=== PATIENT | female | born 1935 | race Hispanic/Latino ===

== ENCOUNTER 2017-08-09 11:50 | Emergency (ER) | payer MEDICARE, OTHER ==
[~2017-08-09] VITALS: Ht 152.4 cm; Wt 37.2 kg
[~2017-08-09 11:50] MED LIST: FENOFIBRATE200 MG PO; FERROUS FUMARA324 MG PO; FISH OIL OMEGA1 EACH PO; GLUCOSAMINE CH1 EAC2 PO; METOCLOPRAMIDE10 MG PO; OS-CAL 500+D T1 EACH PO; PANTOPRAZOLE SO20 MG PO; PROTONIX40 MG/ML; SULFAMETHOXAZO1 EAC1 PO
--- OUTSIDE RECORDS SUMMARY | 2017-08-09 11:51 | XMS REPORT | Clinical Summary ---
Author Author [facility] Organization [facility] Address Unknown Phone Unavailable Care Team Providers Care Director Print Name Role Phone Tashi Stovall MD PCP Allergies No Known Allergies Current Medications Prescription Sig. Disp. Refills Start End Date Status Date mirtazapine (REMERON) 30 Take 30 mg by mouth Active MG tablet nightly. pantoprazole (PROTONIX) Take 40 mg by mouth Active 40 MG EC tablet daily. ferrous sulfate 325 (65 Take 325 mg by mouth Active FE) MG tablet daily. Take 3 tablets once a day ondansetron (ZOFRAN) 8 MG Take 8 mg by mouth 3 Active tablet (three) times a day. FOLIC Take by mouth. Active ACID/MULTIVIT-MIN/LUTEIN (CENTRUM SILVER ORAL) calcium carbonate-vitamin Take 1 tablet by mouth 2 Active D3 (OS-BHARAT 500 + D3) 500 (two) times a day with mg-200 unit per tablet meals. clarithromycin (BIAXIN) Take 2 tablets (1,000 mg 24 tablet 5 06/23/19 12/21/19 500 MG tablet total) by mouth 3 (three) 17 17 times a week for 180 days. riFAMpin (RIFADIN) 300 MG Take 2 capsules (600 mg 24 capsule 5 12/21/19 capsule total) by mouth 3 (three) 17 17 times a week for 180 days. ethambutol (MYAMBUTOL) Take 2 tablets (800 mg 24 tablet 5 06/23/19 12/21/19 400 MG tablet total) by mouth 3 (three) 17 17 times a week for 180 days. 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 Social History Tobacco Use Types Packs/Day Years Used Date Never Smoker Alcohol Use Drinks/Week oz/Week Comments No Sex Assigned at Date Recorded Not on file Last Filed Vital Signs Not on file Plan of Treatment Health Maintenance Due Date Last Done Comments ZOSTER VACCINE 1995 PNEUMOCOCCAL 12/30/2000 POLYSACCHARIDE VACCINE AGE 65 AND OVER PNEUMOCOCCAL-13 12/30/2000 INFLUENZA VACCINE 12/05/2017 Results Not on fileafter 08/08/2016 Insurance Payer Benefit Subscriber ID Type Phone Address Plan / Group MEDICARE MEDICARE xxxxxxxxxx Medicare [place], [place] PART A AND B Work: [address] [place], [place] Home: [phone]
--- OUTSIDE RECORDS SUMMARY | 2017-08-09 11:51 | XMS REPORT | Clinical Summary ---
Author Author [facility] Address Unknown Phone Unavailable Care Team Providers Care Commodity Lead Name Role Phone PCP Unavailable Allergies No Known Allergies Current Medications Prescription Sig. Disp. Refills Start End Date Status Date pantoprazole (PROTONIX) Take 40 mg by mouth Active 40 MG tablet daily. fenofibrate Take 160 mg by mouth Active (TRIGLIDE,LOFIBRA) 160 MG daily. tablet fLUoxetine (PROZAC) 10 MG Take 10 mg by mouth Active capsule daily. valsartan (DIOVAN) 160 MG Take 160 mg by mouth Active tablet daily. brimonidine (ALPHAGAN) Place 1 drop into both Active 0.15 % ophthalmic eyes 2 (two) times daily. solutionIndications: Ocular Hypertension travoprost (TRAVATAN Z) Place 1 drop into both Active 0.004 % Drop ophthalmic eyes nightly. dropsIndications: Ocular Hypertension dorzolamide-timolol Place 1 drop into both Active (COSOPT) 22.3-6.8 mg/mL eyes 2 (two) times daily. 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 Constipation 04/07/2016 Weight loss 04/07/2016 Hyponatremia 04/05/2016 Encounters Date Type Specialty Care Team Description 07/06/2017 [facility] Radiology Yoav Shaffer MD Abnormal CT scan, chest Encounter 07/05/2017 Outside Orders Central Scheduling Yoav Shaffer MD Abnormal CT scan, chest (Primary Dx) 12/07/2016 [facility] Radiology Yoav Shaffer MD Cough Encounter 12/04/2016 Outside Orders Central Scheduling Yoav Shaffer MD Cough (Primary Dx) after 08/08/2016 Social History Tobacco Use Types Packs/Day Years Used Date Never Smoker Alcohol Use Drinks/Week oz/Week Comments No Sex Assigned at Date Recorded Not on file Last Filed Vital Signs Not on file Plan of Treatment Not on file Results * CT Chest without IV Contrast (07/06/2017 11:51 AM) Only the most recent of 2 results within the time period is included. Specimen Performing Laboratory FriendCode Narrative FINAL REPORT HISTORY: R93.8 COMPARISON : 12/07/2016 Technique : Multiple axial images of the chest were performed from the lung apices to the lung bases without the administration of IV contrast. Images were presented in both the lung and soft tissue windows. This exam was performed according to our departmental dose optimization program which includes automated exposure control, adjustment of the mA and/or kV according to patient size and/or use of iterative reconstructive technique. Comment: The thyroid gland is within normal limits. There is no hilar, mediastinal or axillary lymphadenopathy. There is atherosclerotic vascular disease. There is coronary atherosclerosis. There may be stones in the partially visualized gallbladder. The visualized portions of the liver, spleen, adrenal glands, pancreas are within normal limits. There are areas of cortical atrophy/scarring of the left kidney. Multilevel degenerative disc changes of the thoracic spine are seen. No pneumothorax or pleural effusion is seen. There are some opacities identified in the lungs bilaterally. The opacities in the right upper lobe have diminished while the opacities in the left upper lobe have increased with some reticular nodular components. There are also numerous reticular nodular densities with areas of bronchiectasis seen most significantly in the right middle lobe as well as in the lingula as well as in the bilateral lower lobes which are not appreciably changed. Given the nodular components of the airspace disease, continued close CT follow-up is advised. Impression: Findings more suggestive of small airways disease (PAWEL, bronchiolitis, etc.). Other atypical infectious process or multifocal aspiration are also in the differential. The reticular nodular opacities and bronchiectasis in the right middle lobe and lingula as well as the bilateral lower lobes are largely unchanged. The opacities in the right upper lobe have diminished while they are increased or new in the left upper lobe. Signed: Todd Deutsch MD Report Verified Date/Time:07/06/2017 12:41:31 Reading Location: [facility] Diagnostic Imaging Reading Room - [place] [address] Procedure Note Interface, External Ris In - 07/06/2017 12:43 PM BEARING MAKER FINAL REPORT HISTORY: R93.8 COMPARISON : 12/07/2016 Technique : Multiple axial images of the chest were performed from the lung apices to the lung bases without the administration of IV contrast. Images were presented in both the lung and soft tissue windows. This exam was performed according to our departmental dose optimization program which includes automated exposure control, adjustment of the mA and/or kV according to patient size and/or use of iterative reconstructive technique. Comment: The thyroid gland is within normal limits. There is no hilar, mediastinal or axillary lymphadenopathy. There is atherosclerotic vascular disease. There is coronary atherosclerosis. There may be stones in the partially visualized gallbladder. The visualized portions of the liver, spleen, adrenal glands, pancreas are within normal limits. There are areas of cortical atrophy/scarring of the left kidney. Multilevel degenerative disc changes of the thoracic spine are seen. No pneumothorax or pleural effusion is seen. There are some opacities identified in the lungs bilaterally. The opacities in the right upper lobe have diminished while the opacities in the left upper lobe have increased with some reticular nodular components. There are also numerous reticular nodular densities with areas of bronchiectasis seen most significantly in the right middle lobe as well as in the lingula as well as in the bilateral lower lobes which are not appreciably changed. Given the nodular components of the airspace disease, continued close CT follow-up is advised. Impression: Findings more suggestive of small airways disease (PAWEL, bronchiolitis, etc.). Other atypical infectious process or multifocal aspiration are also in the differential. The reticular nodular opacities and bronchiectasis in the right middle lobe and lingula as well as the bilateral lower lobes are largely unchanged. The opacities in the right upper lobe have diminished while they are increased or new in the left upper lobe. Signed: Todd Deutsch MD Report Verified Date/Time: 07/06/2017 12:41:31 Reading Location: [facility] Diagnostic Imaging Reading Room - [place] [address] 112 after 08/08/2016
--- OUTSIDE RECORDS SUMMARY | 2017-08-09 11:51 | XMS REPORT ---
Author Author [facility] Address Unknown Phone Unavailable Care Team Providers Care Certified Orthoptist Name Role Phone OREN ALEGRIA Unavailable Unavailable Problems This patient has no known problems. Allergies, Adverse Reactions, Alerts This patient has no known allergies or adverse reactions. Medications This patient has no known medications. Results Test Description Test Time Test Comments Text Results Atomic Results Result Comments CT, CHEST, WITHOUT CONTRAST 2017-07-06 12:41:00 FINAL REPORT HISTORY: R93.8 COMPARISON : 12/07/2016 Technique : Multiple axial images of the chest were performed from the lung apices to the lung bases without the administration of IV contrast. Images were presented in both the lung and soft tissue windows. This exam was performed according to our departmental dose optimization program which includes automated exposure control , adjustment of the mA and/or kV according [...] the left upper lobe. Signed: Todd Deutsch MDReport Verified Date/Time: 07/06/2017 12:41:31 Reading Location: [facility] Diagnostic Imaging Reading Room - [place] [address] CULTURE + SMEAR 2016-06-22 15:16:00 CULTURE (BEAKER) (test [id number]) MYCOBACTERIUM CHELONAE/ABSCESSUS Mycobacterium chelonae/abscessus* - Complex* - Non-pigmented rapid growerIdentification performed by:[facility], [address] [place] [id number] Amikacin (test code=1) mcg/mL Cefoxitin (test code=68) mcg/mL Ciprofloxacin (test code=7) mcg/mL Clarithromycin (test code=42) Doxycycline (test code=15) mcg/mL Imipenem (test code=19) mcg/mL Linezolid (test code=40) mcg/mL Minocycline (test code=35) mcg/mL Moxifloxacin (test code=36) mcg/mL Trimethoprim + Sulfamethoxazole (test code=47) mcg/mL AFB SMEAR (BEAKER) (test pzhy=085) No acid fast bacilli seen Susceptibility can be performed upon request. Please call the AF[facility] laboratory worker at [phone] if susceptibility testing needed. AFB CULTURE + [id number] 15:16:00* Test Item Value Reference Range Comments CULTURE (BEAKER) (test [id number]=[id number]) MYCOBACTERIUM AVIUM COMPLEX Mycobacterium avium complexIdentification performed by:[facility], Dept. of Microbiology Research, [facility], [address] [address], [place], [place] [address] Clarithromycin (test code=42) mcg/mL AFB SMEAR (BEAKER) (test aiwk=177) No acid fast bacilli seen
[2017-08-09] MEDS ORDERED: ONDANSETRON HCL INJ 2 MG/ML VIAL IV STA (12:00)
[2017-08-09] MEDS ORDERED: SODIUM CHLORIDE 0.9% 1000ML 1,000 ML IV STA (12:00)
[2017-08-09 12:53] LABS: BASOPHILS % 0.2 % (0.0-1.0); EOSINOPHILS % 0.5 % (0.0-6.0); HEMATOCRIT 39.1 % (34.2-44.1); LYMPHOCYTES # (AUTO) 0.8 (1.0-3.2); LYMPHOCYTES % 13.6 % (18.0-39.1); MEAN CORPUSCULAR HEMOGLOBIN 31.3 pg (28-32); MEAN CORPUSCULAR HGB CONC 33.2 g/dL (31-35); MEAN CORPUSCULAR VOLUME 94.2 fL (81-99); MONOCYTES # (AUTO) 0.8 (0.2-0.8); MONOCYTES % 14.1 % (4.4-11.3); NEUTROPHILS # (AUTO) 4.2 (2.1-6.9); NEUTROPHILS % 71.3 % (38.7-80.0); PLATELET COUNT 288 x10e3/uL (140-360); RED BLOOD COUNT 4.15 x10e6/uL (3.6-5.1); RED CELL DISTRIBUTION WIDTH 12.8 % (11.7-14.4)
[2017-08-09 13:26] LABS: ALANINE AMINOTRANSFERASE 28 IU/L (0-55); ALBUMIN 3.6 g/dL (3.5-5.0); ALBUMIN/GLOBULIN RATIO 0.9 (0.8-2.0); ALKALINE PHOSPHATASE 97 IU/L (40-150); AMYLASE 95 U/L (25-125); ANION GAP 12.1 mmol/L (8-16); BLOOD UREA NITROGEN 14 mg/dL (7-26); BUN/CREATININE RATIO 18 (6-25); CALCIUM 9.1 mg/dL (8.4-10.2); CARBON DIOXIDE 18 mmol/L (22-29); CHLORIDE 104 mmol/L (98-107); CREATINE KINASE 63 IU/L (29-168); CREATININE, SERUM 0.78 mg/dL (0.57-1.11); EST GLOMERULAR FILTRATION RATE > 60 ML/MIN (60-); GLUCOSE 99 mg/dL (74-118); LIPASE 21 U/L (8-78); POTASSIUM 4.1 mmol/L (3.5-5.1); SODIUM 130 mmol/L (136-145)
[2017-08-09 14:18] LABS: CLARITY,URINE CLEAR (CLEAR); COLOR,URINE YELLOW (YELLOW); LEUKOCYTE ESTERASE ,URINE NEGATIVE (NEGATIVE); NITRITE,URINE NEGATIVE (NEGATIVE); PROTEIN,URINE DIPSTICK NEGATIVE (NEGATIVE)
[2017-08-09 14:19] LABS: BILIRUBIN,URINE NEGATIVE (NEGATIVE); KETONES,URINE NEGATIVE (NEGATIVE); URINE UROBILINOGEN 0.2 mg/dL (0.2 - 1)
[2017-08-09 14:33] LABS: EPITHELIAL CELLS,URINE FEW /LPF
--- NOTE | 2017-08-09 17:07 | Diagnostic Imaging Report ---
PROCEDURE: CT ABDOMEN AND PELVIS WITH CONTRAST TECHNIQUE: The abdomen and pelvis were scanned utilizing a multidetector helical scanner from the diaphragm to the lesser trochanter after the IV administration of 80 cc of Isovue 370. Coronal and sagittal multiplanar reformations were obtained. DLP: 186.23 mGy-cm COMPARISON: Abdominal CT 06/17/2015. INDICATIONS: NAUSEA, VOMITING FINDINGS: LOWER THORAX: Resolution of the previous medial right lung base consolidation on 06/17/2015. HEPATOBILIARY: No focal hepatic lesions. No biliary ductal dilatation. Calcified gallstone without wall thickening or pericholecystic stranding. SPLEEN: No splenomegaly. PANCREAS: No focal masses or ductal dilatation. ADRENALS: No adrenal nodules. KIDNEYS/URETERS: No hydronephrosis, stones, or solid mass lesions. Too small to characterize hypodensities in the right kidney statistically likely represent cysts. Multifocal scarring in the left kidney. 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 PELVIC ORGANS/BLADDER: Hysterectomy. No adnexal masses. Unremarkable bladder. PERITONEUM / RETROPERITONEUM: No free air or fluid. LYMPH NODES: No lymphadenopathy. VESSELS: Scattered atherosclerotic calcifications without aneurysmal dilatation. GI TRACT: No distention or wall thickening. Numerous sigmoid colonic diverticula without evidence of diverticulitis. Normal appendix. BONES AND SOFT TISSUES: Gluteal injection granulomas. Left femoral medullary wilfredo. Stable 1.2 cm anterolisthesis of L4 on L5 with bilateral pars interarticularis defects. Near sclerosis in the S1 vertebral body (coronal image 57). Diffuse osseous demineralization. A small collection of extravasated contrast is noted in the left arm. IMPRESSION: 1. No acute abnormalities in the abdomen and pelvis. 2. Cholelithiasis. 3. Sigmoid diverticulosis. 4. Atherosclerosis. 5. Bilateral L4 pars defects with stable 1.2 cm anterolisthesis of L4 on L5. 6. New linear sclerosis in S1 likely represents a subacute healing sacral insufficiency fracture. Dictated by: Talat Vazquez M.D. on 08/09/2017 at 17:07 Electronically approved by: Talat Vazquez M.D. on 08/09/2017 at 17:07
[2017-08-09 17:42] VITALS: BP 148/63
[2017-08-09] MEDS ORDERED: SODIUM CHLORIDE 0.9% 50ML 50 ML ONE (20:38)
[2017-08-09] MEDS ORDERED: IOPAMIDOL 370 MG/ML 200 ML INFUS..BTL INJ ONE (20:38)
== END 2017-08-09 17:50 | disposition home or self-care (01) ==
LOC: ER 11:50
DX: E87.1 Hypo-osmolality and hyponatremia (principal); E86.0 Dehydration; R10.32 Left lower quadrant pain; R11.2 Nausea with vomiting, unspecified; I10 Essential (primary) hypertension; E11.9 Type 2 diabetes mellitus without complications; E78.5 Hyperlipidemia, unspecified
CPT/HCPCS: 36415; 74177; 80053; 81001; 82150; 82550; 82553; 83690; 84484; 85025; 99284; J7030; Q9967; J2405

== ENCOUNTER 2017-08-30 13:11 | Inpatient (IN) | payer MEDICARE, OTHER ==
[~2017-08-30] VITALS: Ht 152.4 cm; Wt 37.2 kg
--- OUTSIDE RECORDS SUMMARY | 2017-08-30 13:14 | XMS REPORT | Continuity of Care Document ---
Author Author [facility] Organization [facility] Address [address] [place] [address] Phone Unavailable Care Team Providers Care Medicaid Billing Clerk Name Role Phone OTIS URIBE MD PCP Insurance Providers Guarantor Bettye Hoyt Address [address] [place] [address] Email PTDECLINED [facility] [email or web address] Policy Number [id number] Subscriber's Name Hoyt,Bettye Relationship 18 Self / Same As Patient Effective Date 11 Expiration Date 17 Pay Medicare A & B Policy Number [id number] Subscriber's Name HoytBettye Relationship 18 Self / Same As Patient Effective Date 00 Advance Directives Directive Response Recorded Date/Time Does the patient have an advance directive? No 06/16/15 7:37pm If yes, is advance directive on file with [facility]? No 06/16/15 7:37pm If not on file with [facility] will patient provide a copy? No 06/16/15 7:37pm Do you have a Directive to Physician? No 08/09/17 4:06pm Do you have a Medical Power of Tanning Consultant? No 08/09/17 4:06pm Do you have an out of hospital Do Not Resuscitate Order? No 08/09/17 4:06pm Do you have any special needs we should be aware of? No 08/09/17 4:06pm Do you have a support person here with you today? Yes 08/09/17 4:06pm Did patient receive Notice of Privacy Practices? Yes 08/09/17 4:06pm Did patient receive patient rights and responsibilities? Yes 08/09/17 4:06pm Problems Medical Problem Onset Date Status Gallstone 06/16/2015 Acute UTI (urinary tract infection) 06/16/2015 Acute Medications Current Home Medications Medication Dose Units Route Directions Days Qty Instructions Start Date Calcium Carbonate/Vitamin D3 (Os-John 500+D Tablet) 1 Each Tablet 500 Mg Oral Daily 30 Tab Fenofibrate 200 Mg Cap 200 Tab Oral Daily as needed for Mg Ferrous Fumarate 324 Mg Tablet 324 Mg Oral Daily Gluc Hcl/Csa/Gera Hy/Hyalur Ac (Glucosamine Chondroitin Cap) 1 Each Capsule 1 Tab Oral Daily Metoclopramide Hcl 10 Mg Tablet 10 Mg Oral Twice A Day [place]-3/Dha/Epa/Fish Oil (Fish Oil [place]-3 Softgel) 1 Each Capsule.dr 1 Tab Oral Daily Pantoprazole Sodium 20 Mg Tablet. 40 Mg Oral Daily Past Home Medications Medication Directions Ordered Status Pantoprazole Sod (Protonix) 40 Mg/Ml Susp, Discontinued Sulfamethoxazole/Trimethoprim (Sulfamethoxazole-Tmp Ds Tablet) 1 Each Tablet, 1 Tab Oral Daily Discontinued Social History Social History Problem Response Recorded Date/Time Onset Date Status Hx Alcohol Use No 06/16/2015 7:37pm Not Applicable Not Applicable Smoking Status Start Date Stop Date Never Smoker Hospital Discharge Instructions No hospital discharge instruction information available. Plan of Care Discharge Date 08/09/17 5:50pm Disposition HOME, SELF-CARE Condition at Discharge Stable Instructions/Education Provided Diarrhea - Adult Vomiting - Adult Prescriptions See Medication Section Referrals OTIS URIBE MD Order Date: Call for an appointment Address: [address] [place] [id number] Note: demana que es vegi i es reavalu aquesta setmana. Additional Instructions/Education Call for follow up appointment to see your medical provider or the referral listed. Take over the counter Motrin or Tylenol medication as needed for comfort. Take the prescribed medication for nausea. discussed at the bedside, drink fluids, rest and return to the emergency department for any fever, shortness of breath, chest pain, abdominal pain, trouble handling oral secretions or any new concerns. Llame para frandy erick de seguimiento para wilian a hoyt proveedor mdico o la referencia mencionada. [place] el medicamento de venta juan c Motrin o Tylenol segn sea necesario para hoyt comodidad. [place] la medicacin prescrita por nuseas. You se discuti al lado de la cama, tome lquidos, descanse y regrese a la phill de emergencias para detectar fiebre, dificultad para respirar, dolor en el pecho, dolor abdominal, problemas para manejar secreciones orales o cualquier otra inquietud. Functional Status No functional status information available. Allergies, Adverse Reactions, Alerts No known allergies. Immunizations No immunization information available. Vital Signs Acute Vital Signs Vital Response Date/Time Pulse Pulse Rate (adult) 73 bpm (60 - 90) 08/09/2017 5:42pm Pulse Pulse Rate (adult) 73 bpm (60 - 90) 08/09/2017 5:42pm Respiratory Rate 18 bpm (12 - 24) 08/09/2017 5:42pm Blood Pressure 148/63 mm Hg 08/09/2017 5:42pm Blood Pressure 148/63 mm Hg 08/09/2017 5:42pm Height 5 ft 0 in 08/09/2017 11:55am Weight 82 lb 08/09/2017 11:55am Body Mass Index 16.0 kg/m^2 08/09/2017 11:55am Results Laboratory Results Test Name Result Units Flags Reference Collection Date/Time Result Date/ Time Comments White Blood Count 5.94 x10e3/uL 4.8-10.8 08/09/2017 12:45pm 08/09/2017 12:56pm Red Blood Count 4.15 x10e6/uL 3.6-5.1 08/09/2017 12:45pm 08/09/2017 12: 56pm Hemoglobin 13.0 g/dL 12.0-16.0 08/09/2017 12:45pm 08/09/2017 12:56pm Hematocrit 39.1 % 34.2-44.1 08/09/2017 12:45pm 08/09/2017 12:56pm Mean Corpuscular Volume 94.2 fL 81-99 08/09/2017 12:45pm 08/09/2017 12: 56pm Mean Corpuscular Hemoglobin 31.3 pg 28-32 08/09/2017 12:45pm 2017 12:56pm Mean Corpuscular Hemoglobin Concent 33.2 g/dL 31-35 08/09/2017 12:45pm 08/09/2017 12:56pm Red Cell Distribution Width 12.8 % 11.7-14.4 08/09/2017 12:45pm 2017 12:56pm Platelet Count 288 x10e3/uL 140-360 08/09/2017 12:45pm 08/09/2017 12: 56pm Neutrophils (%) (Auto) 71.3 % 38.7-80.0 08/09/2017 12:45pm 08/09/2017 12:56pm Lymphocytes (%) (Auto) 13.6 % L 18.0-39.1 08/09/2017 12:45pm 08/09/2017 12:56pm Monocytes (%) (Auto) 14.1 % H 4.4-11.3 08/09/2017 12:45pm 08/09/2017 12 :56pm Eosinophils (%) (Auto) 0.5 % 0.0-6.0 08/09/2017 12:45pm 08/09/2017 12: 56pm Basophils (%) (Auto) 0.2 % 0.0-1.0 08/09/2017 12:45pm 08/09/2017 12: 56pm IM GRANULOCYTES % 0.3 % 0.0-1.0 08/09/2017 12:45pm 08/09/2017 12:56pm Neutrophils # (Auto) 4.2 2.1-6.9 08/09/2017 12:45pm 08/09/2017 12: 56pm Lymphocytes # (Auto) 0.8 L 1.0-3.2 08/09/2017 12:45pm 08/09/2017 12: 56pm Monocytes # (Auto) 0.8 0.2-0.8 08/09/2017 12:45pm 08/09/2017 12:56pm Eosinophils # (Auto) 0.0 0.0-0.4 08/09/2017 12:45pm 08/09/2017 12: 56pm Basophils # (Auto) 0.0 0.0-0.1 08/09/2017 12:45pm 08/09/2017 12:56pm Absolute Immature Granulocyte (auto 0.02 x10e3/uL 0-0.1 08/09/2017 12: 45pm 08/09/2017 12:56pm Urine Color YELLOW YELLOW 08/09/2017 1:35pm 08/09/2017 2:19pm Urine Clarity CLEAR CLEAR 08/09/2017 1:35pm 08/09/2017 2:19pm Urine Specific [place] 1.015 1.010-1.025 08/09/2017 1:35pm 2017 2:19pm Urine pH 5 5 - 7 08/09/2017 1:35pm 08/09/2017 2:19pm Urine Leukocyte Esterase NEGATIVE NEGATIVE 08/09/2017 1:35pm 2017 2:19pm Urine Nitrite NEGATIVE NEGATIVE 08/09/2017 1:35pm 08/09/2017 2:19pm Urine Protein NEGATIVE NEGATIVE 08/09/2017 1:35pm 08/09/2017 2:19pm Urine Glucose (UA) NEGATIVE NEGATIVE 08/09/2017 1:35pm 08/09/2017 2: 19pm Urine Ketones NEGATIVE NEGATIVE 08/09/2017 1:35pm 08/09/2017 2:19pm Urine Urobilinogen 0.2 mg/dL 0.2 - 1 08/09/2017 1:35pm 08/09/2017 2: 19pm Urine Bilirubin NEGATIVE NEGATIVE 08/09/2017 1:35pm 08/09/2017 2: 19pm Urine Blood NEGATIVE NEGATIVE 08/09/2017 1:35pm 08/09/2017 2:19pm Urine WBC NONE /HPF 0-5 08/09/2017 1:35pm 08/09/2017 2:33pm Urine RBC NONE /HPF 0-5 08/09/2017 1:35pm 08/09/2017 2:33pm Urine Bacteria NONE /HPF NONE 08/09/2017 1:35pm 08/09/2017 2:33pm Urine Epithelial Cells FEW /LPF NONE 08/09/2017 1:35pm 08/09/2017 2: 33pm Sodium Level 130 mmol/L L 136-145 08/09/2017 1:02pm 08/09/2017 1:27pm Potassium Level 4.1 mmol/L 3.5-5.1 08/09/2017 1:02pm 08/09/2017 1:27pm Chloride Level 104 mmol/L 98-107 08/09/2017 1:02pm 08/09/2017 1:27pm Carbon Dioxide Level 18 mmol/L L 22-29 08/09/2017 1:02pm 08/09/2017 1: 27pm Anion Gap 12.1 mmol/L 8-16 08/09/2017 1:02pm 08/09/2017 1:27pm Blood Urea Nitrogen 14 mg/dL 7-26 08/09/2017 1:02pm 08/09/2017 1:27pm Creatinine 0.78 mg/dL 0.57-1.11 08/09/2017 1:02pm 08/09/2017 1:27pm BUN/Creatinine Ratio 18 6-25 08/09/2017 1:02pm 08/09/2017 1:27pm Estimat Glomerular Filtration Rate > 60 ML/MIN 60- 08/09/2017 1:02pm 1:27pm Ranges were taken from the National Kidney Disease Education Program and the National Kidney Foundation literature. Reference ranges: 60 or greater: Normal 16-59 (for 3 consecutive months): Chronic kidney disease 15 or less: Kidney failure Glucose Level 99 mg/dL 74-118 08/09/2017 1:02pm 08/09/2017 1:27pm Calcium Level 9.1 mg/dL 8.4-10.2 08/09/2017 1:02pm 08/09/2017 1:27pm Total Bilirubin 0.3 mg/dL 0.2-1.2 08/09/2017 1:02pm 08/09/2017 1:27pm Aspartate Amino Transf (AST/SGOT) 34 IU/L 5-34 08/09/2017 1:02pm 2017 1:27pm Alanine Aminotransferase (ALT/SGPT) 28 IU/L 0-55 08/09/2017 1:02pm 09/2017 1:27pm Total Protein 7.4 g/dL 6.5-8.1 08/09/2017 1:02pm 08/09/2017 1:27pm Albumin 3.6 g/dL 3.5-5.0 08/09/2017 1:02pm 08/09/2017 1:27pm Globulin 3.8 g/dL H 2.3-3.5 08/09/2017 1:02pm 08/09/2017 1:27pm Albumin/Globulin Ratio 0.9 0.8-2.0 08/09/2017 1:02pm 08/09/2017 1: 27pm Alkaline Phosphatase 97 IU/L 40-150 08/09/2017 1:02pm 08/09/2017 1: 27pm Creatine Kinase 63 IU/L 29-168 08/09/2017 1:02pm 08/09/2017 1:27pm Creatine Kinase MB 0.60 ng/mL 0-5.0 08/09/2017 1:02pm 08/09/2017 1: 37pm Troponin I < 0.001 ng/mL 0-0.300 08/09/2017 1:02pm 08/09/2017 1:37pm Amylase Level 95 U/L 25-125 08/09/2017 1:02pm 08/09/2017 1:27pm Lipase 21 U/L 8-78 08/09/2017 1:02pm 08/09/2017 1:27pm Procedures Procedure Status Date Provider(s) Computed tomography of abdomen and pelvis with contrast Active 08/09/17 SELINA LUCIANO DIRECTOR OF INSTRUCTION Encounters Encounter Location Arrival/Admit Date Discharge/Depart Date Attending Provider Departed Emergency Room [facility] 08/09/17 11:50am 08/09 5:50pm BRENDON MARTIN MD
--- OUTSIDE RECORDS SUMMARY | 2017-08-30 13:14 | XMS REPORT | Clinical Summary ---
Author Author BURAK [facility] Address Unknown Phone Unavailable Care Team Providers Care Consumer Recruiter Name Role Phone PCP Unavailable Allergies No [...] Date Type Specialty Care Team Description 07/06/2017 [facility] Yoav Shaffer MD Abnormal CT scan, chest Encounter 07/05/2017 Outside Orders Central Scheduling Yoav Shaffer MD Abnormal CT scan, chest (Primary Dx) 12/07/2016 [facility] Yoav Shaffer MD Cough Encounter 12/04/2016 Outside Orders Central Scheduling Yoav Shaffer MD Cough (Primary Dx) after 08/29/2016 Social History Tobacco Use Types Packs/Day Years [...] time period is included. Specimen Performing Laboratory [facility] Narrative FINAL REPORT HISTORY: R93.8 COMPARISON : [...] MD Report Verified Date/Time:07/06/2017 12:41:31 Reading Location: [facility] Diagnostic Imaging Reading Room - [place] [address] Procedure Note Interface, External Ris In - 07/06/2017 12:43 PM [facility] CODER FINAL REPORT HISTORY: R93.8 COMPARISON : 12/07/2016 [...] Report Verified Date/Time: 07/06/2017 12:41:31 Reading Location: [facility] Diagnostic Imaging Reading Room - [place] [address] 112 after 08/29/2016
--- OUTSIDE RECORDS SUMMARY | 2017-08-30 13:14 | XMS REPORT | Clinical Summary ---
Author Author [facility] [employer] [facility] Address Unknown Phone Unavailable Care Team Providers Care Rn Documentation Name Role Phone Tashi Stovall MD PCP [...] Health Maintenance Due Date Last Done Comments SHINGRIX VACCINE (#1) 12/30/1985 ZOSTER VACCINE 1995 PNEUMOCOCCAL 12/30/2000 POLYSACCHARIDE VACCINE AGE 65 AND OVER PNEUMOCOCCAL-13 12/30/2000 INFLUENZA VACCINE 12/05/2017 Results Not on fileafter 08/29/2016 Insurance Payer Benefit Subscriber ID Type Phone Address Plan / Group MEDICARE MEDICARE xxxxxxxxxx Medicare [place], [place] PART A AND B Work: [address] [place], [place] Home: [phone]
--- OUTSIDE RECORDS SUMMARY | 2017-08-30 13:15 | XMS REPORT | Clinical Summary ---
Author Author BURAK [facility] Address Unknown Phone Unavailable Care Team Providers Care Rn Operating Room Name Role Phone PCP Unavailable Allergies No [...] Date Type Specialty Care Team Description 07/06/2017 [facility] Yoav Shaffer MD Abnormal CT scan, chest Encounter 07/05/2017 Outside Orders Central Scheduling Yoav Shaffer MD Abnormal CT scan, chest (Primary Dx) 12/07/2016 [facility] Yoav Shaffer MD Cough Encounter 12/04/2016 [...] time period is included. Specimen Performing Laboratory [facility] Narrative FINAL REPORT HISTORY: R93.8 COMPARISON : [...] MD Report Verified Date/Time:07/06/2017 12:41:31 Reading Location: [facility] Diagnostic Imaging Reading Room - [place] [address] Procedure Note Interface, External Ris In - 07/06/2017 12:43 PM WATER SERVER FINAL REPORT HISTORY: R93.8 COMPARISON : 12/07/2016 [...] Report Verified Date/Time: 07/06/2017 12:41:31 Reading Location: [facility] Diagnostic Imaging Reading Room - [place] [address] 112 after 08/29/2016
--- OUTSIDE RECORDS SUMMARY | 2017-08-30 13:15 | XMS REPORT | Clinical Summary ---
Author Author [facility] Address Unknown Phone Unavailable Care Team Providers Care Crossing Flagman Name Role Phone Tashi Stovall MD PCP [...] PART A AND B Work: [address] [place], [place] Home: [phone]
--- NOTE | 2017-08-30 14:11 | Diagnostic Imaging Report ---
PROCEDURE: CHEST SINGLE (PORTABLE) COMPARISON: Chest x-ray 06/07/15. INDICATIONS: GENERAL WEAKNESS FINDINGS: LUNGS: Stable hyperinflation. There is diffuse bronchial wall thickening. No confluent infiltrates. Nodule in right upper lobe measures 9 mm. PLEURA: No effusions or pneumothorax. HEART \T\ MEDIASTINUM: The heart is normal in size. Aortic ectasia is stable. BONES \T\ SOFT TISSUES: Morphologic changes of the right femoral head are suggestive of remote dislocation. There are degenerative changes of the shoulders. No acute fractures. CONCLUSION: Pulmonary hyperinflation consistent with COPD. Potential right upper lobe nodule. Recommend further evaluation with CT of the chest on an outpatient basis. Dictated by: Balaji Gann M.D. on 08/30/2017 at 14:12 Electronically approved by: Balaji aGnn M.D. on 08/30/2017 at 14:12
[2017-08-30 14:14] LABS: BASOPHILS % 0.1 % (0.0-1.0); EOSINOPHILS # (AUTO) 0.1 (0.0-0.4); EOSINOPHILS % 1.1 % (0.0-6.0); HEMOGLOBIN 12.5 g/dL (12.0-16.0); LYMPHOCYTES # (AUTO) 0.8 (1.0-3.2); LYMPHOCYTES % 10.4 % (18.0-39.1); MEAN CORPUSCULAR HEMOGLOBIN 31.5 pg (28-32); MEAN CORPUSCULAR HGB CONC 34.7 g/dL (31-35); MEAN CORPUSCULAR VOLUME 90.7 fL (81-99); MONOCYTES # (AUTO) 0.5 (0.2-0.8); MONOCYTES % 6.2 % (4.4-11.3); NEUTROPHILS # (AUTO) 6.2 (2.1-6.9); NEUTROPHILS % 81.8 % (38.7-80.0); PLATELET COUNT 322 x10e3/uL (140-360); RED BLOOD COUNT 3.97 x10e6/uL (3.6-5.1); RED CELL DISTRIBUTION WIDTH 13.2 % (11.7-14.4)
[2017-08-30 14:16] LABS: BILIRUBIN,URINE NEGATIVE (NEGATIVE); CLARITY,URINE SL CLOUDY (CLEAR); COLOR,URINE YELLOW (YELLOW); KETONES,URINE NEGATIVE (NEGATIVE); LEUKOCYTE ESTERASE ,URINE NEGATIVE (NEGATIVE); NITRITE,URINE NEGATIVE (NEGATIVE); PROTEIN,URINE DIPSTICK 1+ (NEGATIVE); URINE UROBILINOGEN 1 mg/dL (0.2 - 1)
[2017-08-30 14:28] LABS: INR 1.15; PARTIAL THROMBOPLASTIN TIME 26.4 seconds (23.8-35.5); PROTHROMBIN TIME 13.8 seconds (11.9-14.5)
[2017-08-30 14:38] LABS: ALANINE AMINOTRANSFERASE 13 IU/L (0-55); ALBUMIN 3.3 g/dL (3.5-5.0); ALBUMIN/GLOBULIN RATIO 0.8 (0.8-2.0); ALKALINE PHOSPHATASE 78 IU/L (40-150); ANION GAP 12.7 mmol/L (8-16); BLOOD UREA NITROGEN 13 mg/dL (7-26); BUN/CREATININE RATIO 16 (6-25); CALCIUM 9.4 mg/dL (8.4-10.2); CARBON DIOXIDE 20 mmol/L (22-29); CHLORIDE 101 mmol/L (98-107); CREATINE KINASE 55 IU/L (29-168); CREATININE, SERUM 0.82 mg/dL (0.57-1.11); EST GLOMERULAR FILTRATION RATE > 60 ML/MIN (60-); GLUCOSE 138 mg/dL (74-118); MAGNESIUM 1.8 MG/DL (1.3-2.1); POTASSIUM 3.7 mmol/L (3.5-5.1); RBC,URINE 0-5 /HPF (0-5); SODIUM 130 mmol/L (136-145); WBC,URINE (MAN) 0-5 /HPF (0-5)
[2017-08-30 14:39] LABS: BACTERIA,URINE MODERATE /HPF; MUCUS,URINE FEW (RARE)
[2017-08-30 14:59] LABS: THYROID STIMULATING HORMONE 3.142 uIU/mL (0.350-4.940)
--- NOTE | 2017-08-30 15:22 | Diagnostic Imaging Report ---
Exams: Head and cervical spine CTs without IV contrast History: Trauma, fall Comparison studies: None Technique: Axial images were obtained from the brain and cervical spine. Coronal and sagittal images reconstructed from the axial data. Intravenous contrast: None Findings: Head CT: Scalp: No abnormalities. Bones: No fractures, blastic or lytic lesions. Extra-axial spaces: No masses. No fluid collections. Brain sulci: Mildly prominent. Ventricles: Mild compensatory dilatation. No hydrocephalus. Parenchyma: A few hypodensities in the supratentorial white matter which are mildly confluent in the periventricular white matter are nonspecific but most compatible with chronic small vessel ischemic changes. No masses, acute hemorrhage, acute or chronic vascular insults. Sellar/suprasellar region: No abnormalities. Craniocervical junction: The foramen magnum is patent. No Chiari one malformation. Cervical spine CT: Fractures: None. Soft tissues: No gross abnormalities. Atlantoaxial articulation: Intact. Alignment: Mild hyperlordotic curvature may be accentuated by patient positioning. Minimal retrolisthesis of C3 on C4 and C4 on C5 are most likely degenerative in etiology. Cervicomedullary junction: No abnormalities. The foramen magnum is patent. Vertebrae: No infection or neoplasm. Demineralized bones. Degenerative changes: Moderate degenerative changes at the C1-C2 articulation. Minimal retrolisthesis of C3 on C4 and C4 on C5 with associated small disc osteophyte complexes and thickened/calcified ligamentum flavum at C4-C5 indent the thecal sac but do not result in significant canal stenosis. Patent foramina. Mild multilevel facet arthrosis, greatest on the right at C5-C6. Included lung apices: Nonspecific scarring bilaterally. Bilateral lung nodules are nonspecific and may be infectious or inflammatory, though cannot differentiate from neoplastic etiology on the basis of this exam. Incidental findings: Scattered calcified atherosclerosis in the cervical carotid bulbs, in the carotid siphons and in the intradural vertebral arteries. 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 IMPRESSION: Head CT: 1. No acute abnormalities. 2. Mild generalized volume loss. 3. Mild chronic microvascular ischemic changes. Cervical spine CT: 1. No cervical spine fracture or acute subluxation. 2. Degenerative changes as described. 3. Cannot adequate evaluate ligament, spinal cord and or vascular abnormalities on the basis of this examination. 4. Incidental pulmonary nodules. Recommend chest CT to further evaluate if not recently performed. Signed by: Dr. Tony Estrella M.D. on 08/30/2017 3:18 PM
--- OUTSIDE RECORDS SUMMARY | 2017-08-30 16:15 | XMS REPORT | Clinical Summary ---
Author Author [facility] Address Unknown Phone Unavailable Care Team Providers Care Earth Moving Machine Operator Name Role Phone Tashi Stovall MD PCP [...] PART A AND B Work: [address] [place], [place] Home: [phone]
--- OUTSIDE RECORDS SUMMARY | 2017-08-30 16:15 | XMS REPORT | Clinical Summary ---
Author Author BURAK [facility] Address Unknown Phone Unavailable Care Team Providers Care Captain Assistant Name Role Phone PCP Unavailable Allergies No [...] Date Type Specialty Care Team Description 07/06/2017 [facility] Yoav Shaffer MD Abnormal CT scan, chest Encounter 07/05/2017 Outside Orders Central Scheduling Yoav Shaffer MD Abnormal CT scan, chest (Primary Dx) 12/07/2016 [facility] Yoav Shaffer MD Cough Encounter [...] time period is included. Specimen Performing Laboratory [facility] Narrative FINAL REPORT HISTORY: R93.8 COMPARISON : [...] MD Report Verified Date/Time:07/06/2017 12:41:31 Reading Location: [facility] Diagnostic Imaging Reading Room - [place] [address] Procedure Note Interface, External Ris In - 07/06/2017 12:43 PM [employer]NT FINAL REPORT HISTORY: R93.8 COMPARISON : 12/07/2016 [...] Report Verified Date/Time: 07/06/2017 12:41:31 Reading Location: [facility] Diagnostic Imaging Reading Room - [place] [address] 112 after 08/29/2016
[2017-08-30 18:00] VITALS: BP 168/87
[2017-08-30] MEDS ORDERED: BRIMONIDINE TART5 ML OP (18:32)
[2017-08-30] MEDS ORDERED: ALENDRONATE SOD70 MG PO (18:32)
[2017-08-30] MEDS ORDERED: CATAPRES0.1 MG PO (18:32)
[2017-08-30] MEDS ORDERED: TRAVATAN Z5 ML OP (18:32)
[2017-08-30] MEDS ORDERED: ATORVASTATIN CA20 MG PO (18:32)
[2017-08-30] MEDS ORDERED: DORZOLAMIDE-TIM10 ML OP (18:32)
[2017-08-30] MEDS ORDERED: ZOFRAN ODT4 MG PO (18:32)
[2017-08-30 18:41] VITALS: BP 168/87
[2017-08-30 18:45] VITALS: BP 168/87
[2017-08-30] MEDS ORDERED: CLONIDINE HCL 0.1 MG TAB PO SCH (19:00)
[2017-08-30] MEDS: SODIUM CHLORIDE 0.9% 1000ML 1,000 ML IV SCH (19:02)
[2017-08-30] MEDS: TRAVOPROST(OPTH) 2.5 ML BTL OP SCH (19:33)
[2017-08-30] MEDS: ATORVASTATIN 20 MG TAB PO SCH (19:58)
[2017-08-30 20:00] VITALS: BP 153/77
[2017-08-30 20:06] VITALS: BP 153/77
[2017-08-30 22:53] LABS: CREATINE KINASE 47 IU/L (29-168)
[2017-08-31] MEDS: ACETAMINOPHEN 325 MG TAB PO PRN (00:42)
[2017-08-31 00:51] VITALS: BP 150/70
[2017-08-31] MEDS: SODIUM CHLORIDE 0.9% 1000ML 1,000 ML IV SCH ×3 (03:15→12:45)
[2017-08-31 06:21] VITALS: BP 140/70
[2017-08-31 06:57] LABS: BASOPHILS % 0.2 % (0.0-1.0); EOSINOPHILS # (AUTO) 0.1 (0.0-0.4); HEMATOCRIT 28.1 % (34.2-44.1); HEMOGLOBIN 9.7 g/dL (12.0-16.0); LYMPHOCYTES # (AUTO) 1.4 (1.0-3.2); LYMPHOCYTES % 29.1 % (18.0-39.1); MEAN CORPUSCULAR HEMOGLOBIN 31.7 pg (28-32); MEAN CORPUSCULAR HGB CONC 34.5 g/dL (31-35); MEAN CORPUSCULAR VOLUME 91.8 fL (81-99); MONOCYTES # (AUTO) 0.5 (0.2-0.8); MONOCYTES % 11.5 % (4.4-11.3); NEUTROPHILS # (AUTO) 2.6 (2.1-6.9); NEUTROPHILS % 55.8 % (38.7-80.0); PLATELET COUNT 280 x10e3/uL (140-360); RED BLOOD COUNT 3.06 x10e6/uL (3.6-5.1)
--- NOTE | 2017-08-31 07:03 | Diagnostic Imaging Report ---
EXAMINATION: CHEST SINGLE (PORTABLE) INDICATION: Weakness, COMPARISON: 08/30/2017 FINDINGS: TUBES and LINES: None. LUNGS: Lungs are well inflated. Few areas of pulmonary scarring noted in the right apical region. There is no evidence of pneumonia or pulmonary edema. PLEURA: No pleural effusion or pneumothorax. HEART AND MEDIASTINUM: The cardiomediastinal silhouette is unremarkable. There are atherosclerotic calcifications within the aorta. BONES AND SOFT TISSUES: No acute osseous lesion. Soft tissues are unremarkable. UPPER ABDOMEN: No free air under the diaphragm. IMPRESSION: No acute thoracic abnormality. Signed by: Dr. Aguilar Hfofmann M.D. on 08/31/2017 7:00 AM
[2017-08-31 07:20] LABS: CREATINE KINASE 41 IU/L (29-168)
[2017-08-31 07:28] LABS: ANION GAP 7.9 mmol/L (8-16); BLOOD UREA NITROGEN 9 mg/dL (7-26); BUN/CREATININE RATIO 13 (6-25); CALCIUM 8.8 mg/dL (8.4-10.2); CARBON DIOXIDE 21 mmol/L (22-29); CHLORIDE 107 mmol/L (98-107); EST GLOMERULAR FILTRATION RATE > 60 ML/MIN (60-); GLUCOSE 86 mg/dL (74-118); MAGNESIUM 1.6 MG/DL (1.3-2.1); POTASSIUM 3.9 mmol/L (3.5-5.1); SODIUM 132 mmol/L (136-145)
[2017-08-31 08:00] VITALS: BP 138/70
[2017-08-31] MEDS: PANTOPRAZOLE SOD 40 MG TABEC PO SCH (08:00)
[2017-08-31] MEDS: BRIMONIDINE TARTRATE (OPTH) 5 ML LIQD OP SCH ×2 (08:50→16:34)
[2017-08-31] MEDS: DORZOLAMIDE/TIMOLOL (OPTH SOL) 10 ML DRPETTE OP SCH ×2 (08:50→16:34)
[2017-08-31] MEDS: ONDANSETRON HCL 4 MG ORAL DISINTEGRATING TAB PO SCH ×2 (08:51→16:34)
[2017-08-31] MEDS: CLONIDINE HCL 0.1 MG TAB PO SCH ×2 (08:51→16:34)
[2017-08-31] MEDS ORDERED: CLONIDINE HCL 0.1 MG TAB PO SCH (09:00)
[2017-08-31] MEDS ORDERED: NON-FORMULARY MEDICATION (Pantoprazole Sodium 40 MG) PO SCH (09:00)
[2017-08-31 12:00] VITALS: BP 149/71
[2017-08-31 16:00] VITALS: BP 120/60
[2017-08-31] MEDS: DRONABINOL 2.5MG PO SCH (16:56)
[2017-08-31] MEDS ORDERED: DRONABINOL 2.5MG PO SCH (17:00)
[2017-08-31 20:00] VITALS: BP 118/71
[2017-08-31] MEDS: TRAVOPROST(OPTH) 2.5 ML BTL OP SCH (21:25)
[2017-08-31] MEDS: ATORVASTATIN 20 MG TAB PO SCH (21:25)
[2017-09-01] VITALS (7 sets, daily range): BP systolic 114–154; BP diastolic 59–82
[2017-09-01] MEDS: PANTOPRAZOLE SOD 40 MG TABEC PO SCH (07:30)
[2017-09-01] MEDS: SODIUM CHLORIDE 0.9% 1000ML 1,000 ML IV SCH ×2 (08:01→17:49)
[2017-09-01] MEDS: DRONABINOL 2.5MG PO SCH ×2 (09:01→17:39)
[2017-09-01] MEDS: ONDANSETRON HCL 4 MG ORAL DISINTEGRATING TAB PO SCH ×2 (09:02→17:40)
[2017-09-01] MEDS: CLONIDINE HCL 0.1 MG TAB PO SCH ×2 (09:02→17:40)
[2017-09-01] MEDS: BRIMONIDINE TARTRATE (OPTH) 5 ML LIQD OP SCH ×2 (10:07→17:39)
[2017-09-01] MEDS: DORZOLAMIDE/TIMOLOL (OPTH SOL) 10 ML DRPETTE OP SCH ×2 (10:07→17:39)
[2017-09-01] MEDS: ATORVASTATIN 20 MG TAB PO SCH (21:52)
[2017-09-01] MEDS: TRAVOPROST(OPTH) 2.5 ML BTL OP SCH (21:52)
[2017-09-02] VITALS (7 sets, daily range): BP systolic 115–164; BP diastolic 61–96
[2017-09-02] MEDS: SODIUM CHLORIDE 0.9% 1000ML 1,000 ML IV SCH ×2 (01:35→14:01)
[2017-09-02] MEDS: DRONABINOL 2.5MG PO SCH ×2 (07:30→16:30)
[2017-09-02] MEDS: PANTOPRAZOLE SOD 40 MG TABEC PO SCH (07:30)
[2017-09-02] MEDS: BRIMONIDINE TARTRATE (OPTH) 5 ML LIQD OP SCH ×2 (09:00→17:28)
[2017-09-02] MEDS: DORZOLAMIDE/TIMOLOL (OPTH SOL) 10 ML DRPETTE OP SCH ×2 (09:00→17:28)
[2017-09-02] MEDS: ONDANSETRON HCL 4 MG ORAL DISINTEGRATING TAB PO SCH ×2 (10:24→17:29)
[2017-09-02] MEDS: CLONIDINE HCL 0.1 MG TAB PO SCH ×2 (10:24→17:28)
[2017-09-02] MEDS: ACETAMINOPHEN 325 MG TAB PO PRN (13:14)
[2017-09-02] MEDS: ATORVASTATIN 20 MG TAB PO SCH (21:04)
[2017-09-02] MEDS: TRAVOPROST(OPTH) 2.5 ML BTL OP SCH (21:04)
[2017-09-03] VITALS: BP 145/78
[2017-09-03] MEDS: SODIUM CHLORIDE 0.9% 1000ML 1,000 ML IV SCH ×3 (00:01→20:01)
[2017-09-03 04:00] VITALS: BP 178/75
[2017-09-03] MEDS ORDERED: ALENDRONATE SODIUM 70 MG TAB PO SCH (06:30)
[2017-09-03] MEDS: PANTOPRAZOLE SOD 40 MG TABEC PO SCH (07:30)
[2017-09-03] MEDS: DRONABINOL 2.5MG PO SCH ×2 (07:30→16:30)
[2017-09-03 08:00] VITALS: BP 159/80
[2017-09-03] MEDS: ONDANSETRON HCL 4 MG ORAL DISINTEGRATING TAB PO SCH ×2 (09:00→16:47)
[2017-09-03] MEDS: BRIMONIDINE TARTRATE (OPTH) 5 ML LIQD OP SCH ×2 (09:00→16:46)
[2017-09-03] MEDS: DORZOLAMIDE/TIMOLOL (OPTH SOL) 10 ML DRPETTE OP SCH ×2 (09:00→16:47)
[2017-09-03] MEDS: CLONIDINE HCL 0.1 MG TAB PO SCH ×2 (09:00→16:47)
[2017-09-03 12:35] VITALS: BP 131/65
[2017-09-03 20:00] VITALS: BP 139/64
[2017-09-03] MEDS: ATORVASTATIN 20 MG TAB PO SCH (22:03)
[2017-09-03] MEDS: TRAVOPROST(OPTH) 2.5 ML BTL OP SCH (22:03)
[2017-09-04] VITALS: BP 146/68
[2017-09-04] MEDS: SODIUM CHLORIDE 0.9% 1000ML 1,000 ML IV SCH ×2 (03:03→16:01)
[2017-09-04 04:00] VITALS: BP 139/64
[2017-09-04] MEDS: PANTOPRAZOLE SOD 40 MG TABEC PO SCH (07:30)
[2017-09-04] MEDS: DRONABINOL 2.5MG PO SCH ×2 (07:30→16:30)
[2017-09-04 08:06] VITALS: BP 148/70
[2017-09-04] MEDS: CLONIDINE HCL 0.1 MG TAB PO SCH ×2 (09:00→17:00)
[2017-09-04] MEDS: DORZOLAMIDE/TIMOLOL (OPTH SOL) 10 ML DRPETTE OP SCH ×2 (09:00→17:00)
[2017-09-04] MEDS: BRIMONIDINE TARTRATE (OPTH) 5 ML LIQD OP SCH ×2 (09:00→17:00)
[2017-09-04] MEDS: ONDANSETRON HCL 4 MG ORAL DISINTEGRATING TAB PO SCH ×2 (09:00→17:00)
[2017-09-04 12:06] VITALS: BP 136/62
[2017-09-04 16:00] VITALS: BP 136/63
[2017-09-04 20:06] VITALS: BP 143/66
[2017-09-04] MEDS: ATORVASTATIN 20 MG TAB PO SCH (20:26)
[2017-09-04] MEDS: TRAVOPROST(OPTH) 2.5 ML BTL OP SCH (20:26)
[2017-09-05 00:33] VITALS: BP 161/70
[2017-09-05] MEDS: SODIUM CHLORIDE 0.9% 1000ML 1,000 ML IV SCH ×2 (02:01→12:01)
[2017-09-05 05:01] VITALS: BP 166/75
[2017-09-05 08:00] VITALS: BP 144/76
[2017-09-05] MEDS: BRIMONIDINE TARTRATE (OPTH) 5 ML LIQD OP SCH (08:51)
[2017-09-05] MEDS: PANTOPRAZOLE SOD 40 MG TABEC PO SCH (08:51)
[2017-09-05] MEDS: DRONABINOL 2.5MG PO SCH (08:51)
[2017-09-05] MEDS: DORZOLAMIDE/TIMOLOL (OPTH SOL) 10 ML DRPETTE OP SCH (08:52)
[2017-09-05] MEDS: CLONIDINE HCL 0.1 MG TAB PO SCH (08:52)
[2017-09-05] MEDS: ONDANSETRON HCL 4 MG ORAL DISINTEGRATING TAB PO SCH (08:53)
[2017-09-05 09:00] VITALS: BP 144/76
[2017-09-05] MEDS ORDERED: DOCUSATE SODIUM 100 MG CAP PO ONE (11:45)
[2017-09-05 12:00] VITALS: BP 122/61
== END 2017-09-05 16:21 | DRG 641 ==
LOC: ER 13:13 → ERHOLD 16:01 → MED/SURG2 17:23
DX: E43 Unspecified severe protein-calorie malnutrition (principal); R64 Cachexia; Z68.1 Body mass index [BMI] 19.9 or less, adult; D64.9 Anemia, unspecified; R63.0 Anorexia; R55 Syncope and collapse; R91.1 Solitary pulmonary nodule; Z95.5 Presence of coronary angioplasty implant and graft; I50.9 Heart failure, unspecified; J20.9 Acute bronchitis, unspecified; I11.0 Hypertensive heart disease with heart failure
CPT/HCPCS: 36415; 36600; 51700; 70450; 71045; 72125; 80048; 80053; 81001; 82550; 82553; 82948; 83735; 83880; 84443; 84484; 85025; 85610; 85730; 87040; 93005; 99285; J7030

== ENCOUNTER 2017-10-30 14:20 | Inpatient (IN) | payer MEDICARE, OTHER ==
[~2017-10-30] VITALS: Ht 149.9 cm; Wt 43.1 kg
[~2017-10-30 14:20] MED LIST changes: +ALENDRONATE SOD70 MG PO; +ATORVASTATIN CA20 MG PO; +BRIMONIDINE TART5 ML OP; +CATAPRES0.1 MG PO; +DORZOLAMIDE-TIM10 ML OU; +TRAVATAN Z5 ML OU; +ZOFRAN ODT4 MG PO
[2017-10-30 16:21] LABS: BASOPHILS % 0.2 % (0.0-1.0); EOSINOPHILS # (AUTO) 0.1 (0.0-0.4); EOSINOPHILS % 1.2 % (0.0-6.0); HEMOGLOBIN 10.3 g/dL (12.0-16.0); LYMPHOCYTES # (AUTO) 0.9 (1.0-3.2); LYMPHOCYTES % 8.8 % (18.0-39.1); MEAN CORPUSCULAR HEMOGLOBIN 30.8 pg (28-32); MEAN CORPUSCULAR HGB CONC 34.3 g/dL (31-35); MEAN CORPUSCULAR VOLUME 89.8 fL (81-99); MONOCYTES # (AUTO) 0.9 (0.2-0.8); NEUTROPHILS # (AUTO) 7.8 (2.1-6.9); NEUTROPHILS % 80.4 % (38.7-80.0); PLATELET COUNT 533 x10e3/uL (140-360); RED BLOOD COUNT 3.34 x10e6/uL (3.6-5.1); RED CELL DISTRIBUTION WIDTH 12.5 % (11.7-14.4)
[2017-10-30 16:23] LABS: BILIRUBIN,URINE NEGATIVE (NEGATIVE); CLARITY,URINE SL CLOUDY (CLEAR); COLOR,URINE YELLOW (YELLOW); KETONES,URINE NEGATIVE (NEGATIVE); LEUKOCYTE ESTERASE ,URINE TRACE (NEGATIVE); NITRITE,URINE NEGATIVE (NEGATIVE); PROTEIN,URINE DIPSTICK NEGATIVE (NEGATIVE); URINE UROBILINOGEN 4 mg/dL (0.2 - 1)
[2017-10-30 16:34] LABS: ALANINE AMINOTRANSFERASE 74 IU/L (0-55); ALBUMIN 2.7 g/dL (3.5-5.0); ALBUMIN/GLOBULIN RATIO 0.6 (0.8-2.0); ALKALINE PHOSPHATASE 143 IU/L (40-150); ANION GAP 14.2 mmol/L (8-16); BLOOD UREA NITROGEN 17 mg/dL (7-26); BUN/CREATININE RATIO 23 (6-25); CALCIUM 9.4 mg/dL (8.4-10.2); CARBON DIOXIDE 20 mmol/L (22-29); CHLORIDE 99 mmol/L (98-107); CREATININE, SERUM 0.73 mg/dL (0.57-1.11); EST GLOMERULAR FILTRATION RATE > 60 ML/MIN (60-); GLUCOSE 107 mg/dL (74-118); POTASSIUM 4.2 mmol/L (3.5-5.1); SODIUM 129 mmol/L (136-145)
[2017-10-30 16:35] LABS: BACTERIA,URINE MANY /HPF; EPITHELIAL CELLS,URINE RARE /LPF; RBC,URINE 0-5 /HPF (0-5)
--- NOTE | 2017-10-30 17:51 | Diagnostic Imaging Report ---
Examination: Single AP view of the chest. COMPARISON: Single chest 08/31/2017 INDICATION: Failure to thrive IMPRESSION: 1. Lines and Tubes: None 2. Lungs are well-inflated. Increased opacity in the right upper lobe/right apex when compared to prior exam, which may represent pneumonia, in the appropriate clinical setting. Pulmonary neoplasm is less likely given the short duration of time between the current exam of the comparison. Recommend follow-up chest PA and lateral 4-6 weeks after appropriate treatment to document resolution. Alternatively, a chest CT may be obtained. 3. Cardiomediastinal silhouette is normal. Pulmonary vasculature is normal. 4. No acute bony abnormalities. Signed by: Dr. Devang Kwon M.D. on 10/30/2017 5:47 PM
[2017-10-30] MEDS ORDERED: ONDANSETRON HCL INJ 2 MG/ML VIAL IV PRN (19:00)
[2017-10-30] MEDS ORDERED: CEFTRIAXONE SOD 1 GM VIAL IV SCH (19:20)
[2017-10-30] MEDS: PIPER-TAZ 3.375 GM 50 ML IV SCH (20:17)
[2017-10-30] MEDS ORDERED: CLONIDINE HCL0.1 MG PO (20:26)
[2017-10-30] MEDS ORDERED: ALPHAGAN P5 M1 OU (20:26)
[2017-10-30] MEDS ORDERED: PANTOPRAZOLE SO40 MG PO (20:26)
[2017-10-30] MEDS ORDERED: MIRTAZAPINE30 MG PO (20:26)
[2017-10-30 20:47] VITALS: BP 130/72
[2017-10-30 20:48] VITALS: BP 130/72
--- NOTE | 2017-10-30 20:59 | Diagnostic Imaging Report ---
EXAM: CT Chest WITHOUT contrast INDICATION: \S\MASS? \[id number] \S\194 COMPARISON: Chest x-ray dated 10/30/2017 TECHNIQUE: Chest was scanned utilizing a multidetector helical scanner from the lung apex through the level of the adrenal glands without administration of IV contrast. Absence of intravenous contrast decreases sensitivity for detection of lymphadenopathy and vascular pathology. Coronal and sagittal reformations were obtained. Routine protocol was performed. IV CONTRAST: None COMPLICATIONS: None RADIATION DOSE: Total DLP: 280.53 mGy*cm Estimated effective dose: (DLP x 0.014 x size factor) mSv CTDIvol has been reviewed. It is below the limits set by the Radiation Protocol Committee (RPC). FINDINGS: LINES/ TUBES: None. LUNGS AND AIRWAYS: Spiculated posterior left base 2.3 x 1.6 cm lesion (series 3, image 86). There are numerous additional irregular, mostly cavitary lung nodules throughout both lungs. For example another spiculated right upper lobe 1.2 cm nodule (series 3, image 29). There is mild bronchiectasis, especially in right upper and middle lobes. Biapical scarring. Right upper lobe patchy opacities. Airways are normal. PLEURA: The pleural spaces are clear. HEART AND MEDIASTINUM: The thyroid gland is normal. No mediastinal, hilar or axillary lymphadenopathy. Few scattered nonspecific mediastinal lymph nodes. The heart is normal in size.. There is no pericardial effusion. Severe atherosclerotic calcification of coronary arteries. UPPER ABDOMEN: Partially visualized left renal scarring with lobulated contour. Left renal lesion cannot be excluded. BONES: The visualized bony thorax is within normal limits. SOFT TISSUES: Unremarkable. IMPRESSION: 1. Right upper lobe patchy opacities as well as numerous bilateral nodules, some cavitary and some spiculated. There is also upper lobe predominant bronchiectasis. Constellation of findings are concerning for atypical infectious process. Other differential consideration is malignancy. Recommend short-term follow-up to evaluate for changes. 2. Left renal scarring with questionable underlying lesions. Nonurgent renal ultrasound can be obtained for further evaluation. Signed by: Dr. Landen Bailey MD on 10/30/2017 8:55 PM
[2017-10-30] MEDS: SODIUM CHLORIDE 0.9% 1000ML 1,000 ML IV SCH (22:00)
[2017-10-31] VITALS (8 sets, daily range): BP systolic 104–172; BP diastolic 62–77
[2017-10-31] MEDS ORDERED: VANCOMYCIN 500MG/NS 0.9% 100ML 100 ML IV ONE (00:15)
[2017-10-31] MEDS ORDERED: VANCOMYCIN 500MG/NS 0.9% 100ML 100 ML IV SCH (03:30)
[2017-10-31] MEDS: PIPER-TAZ 3.375 GM 50 ML IV SCH ×3 (03:46→20:54)
[2017-10-31 05:52] LABS: BASOPHILS % 0.3 % (0.0-1.0); EOSINOPHILS # (AUTO) 0.2 (0.0-0.4); EOSINOPHILS % 2.5 % (0.0-6.0); HEMATOCRIT 28.6 % (34.2-44.1); HEMOGLOBIN 9.5 g/dL (12.0-16.0); LYMPHOCYTES % 15.3 % (18.0-39.1); MEAN CORPUSCULAR HEMOGLOBIN 30.6 pg (28-32); MEAN CORPUSCULAR HGB CONC 33.2 g/dL (31-35); MEAN CORPUSCULAR VOLUME 92.3 fL (81-99); MONOCYTES # (AUTO) 0.6 (0.2-0.8); MONOCYTES % 8.6 % (4.4-11.3); PLATELET COUNT 504 x10e3/uL (140-360); RED CELL DISTRIBUTION WIDTH 12.6 % (11.7-14.4)
[2017-10-31 06:06] LABS: INR 1.35; PROTHROMBIN TIME 15.7 seconds (11.9-14.5)
[2017-10-31 06:07] LABS: PARTIAL THROMBOPLASTIN TIME 35.1 seconds (23.8-35.5)
--- NOTE | 2017-10-31 06:10 | Diagnostic Imaging Report ---
EXAMINATION: CHEST SINGLE (PORTABLE) INDICATION: Pneumonia COMPARISON: Chest x-ray and CT of the chest on October 30, 2017 FINDINGS: TUBES and LINES: None. LUNGS: Lungs are well inflated. No interval change in appearance of right upper lobe consolidation . PLEURA: No pleural effusion or pneumothorax. HEART AND MEDIASTINUM: The cardiomediastinal silhouette is unremarkable. There are atherosclerotic calcifications within the aorta. BONES AND SOFT TISSUES: No acute osseous lesion. Soft tissues are unremarkable. UPPER ABDOMEN: No free air under the diaphragm. IMPRESSION: No interval change in right upper lobe airspace disease compatible with pneumonia. Signed by: Dr. Aguilar Hoffmann M.D. on 10/31/2017 6:06 AM
[2017-10-31 06:19] LABS: ALANINE AMINOTRANSFERASE 57 IU/L (0-55); ALBUMIN 2.4 g/dL (3.5-5.0); ALBUMIN/GLOBULIN RATIO 0.6 (0.8-2.0); ALKALINE PHOSPHATASE 121 IU/L (40-150); BLOOD UREA NITROGEN 13 mg/dL (7-26); BUN/CREATININE RATIO 19 (6-25); CARBON DIOXIDE 20 mmol/L (22-29); CHLORIDE 104 mmol/L (98-107); EST GLOMERULAR FILTRATION RATE > 60 ML/MIN (60-); GLUCOSE 91 mg/dL (74-118); SODIUM 134 mmol/L (136-145)
[2017-10-31] MEDS ORDERED: PROMETHAZINE 12.5MG/ NACL 0.9% 12.5 MG/50 ML BAG IV PRN (07:45)
[2017-10-31 08:06] LABS: HIV 1&2 AB SCREEN NON-REACTIVE (NONREACTIVE)
--- NOTE | 2017-10-31 08:10 | History and Physical ---
PRIMARY CARE PHYSICIAN: Unknown CHIEF COMPLAINT: Failure to thrive, anorexia and weight loss. HISTORY OF PRESENT ILLNESS: An 81-year-old woman, per the medical record, the patient has been losing weight and has reduced oral intake. Limited history available. Family is not available by phone at this time. The patient has been losing weight. Brought to the emergency room and found to have a urinary tract infection, transaminitis and low sodium level. Also, found to have spiculated lung nodules. She is admitted for further evaluation and management. PAST MEDICAL HISTORY: Physical deconditioning, recurrent falls, gastritis, diverticulosis, hyperlipidemia, GERD, osteoporosis. PAST SURGICAL HISTORY: Oophorectomy in 1994. ALLERGIES: PER ELECTRONIC MEDICAL RECORD. FAMILY HISTORY/SOCIAL HISTORY: Patient lives with family. No alcohol, illicits or cigarettes. MEDICATIONS: Per electronic medical record. REVIEW OF SYSTEMS: Denies any chest pain, shortness of breath. Denies any leg pain. Denies abdominal pain. Denies any headache. Denies any fever, chills, sweats, nausea, vomiting, or diarrhea. PHYSICAL EXAMINATION VITAL SIGNS: Have been reviewed. GENERAL: A tired-appearing woman resting in bed. HEENT: Anicteric. Bitemporal wasting. CARDIOVASCULAR: Normal S1 and S2. LUNGS: She has moderate breath sounds somewhat reduced. ABDOMEN: Soft, nontender and nondistended. EXTREMITIES: No edema or calf tenderness. SKIN: Dry. PSYCHIATRIC: Flat affect. LABS: Reviewed. MEDICATIONS: Reviewed. ASSESSMENT: This is an 81-year-old woman with: 1. Urinary tract infection. 2. Transaminitis. 3. Hyponatremia. 4. Normocytic anemia. 5. Gastroesophageal reflux disease. 6. Lung nodule with some spiculated and some cavitary. 7. Anorexia. 8. Moderate protein calorie malnutrition. PLAN 1. Will treat urinary tract infection with antibiotics. Follow up cultures. 2. Will consult pulmonary services for the cavitary lung lesion. Will screen the patient for tuberculosis with QuantiFeron sputum sample. Will put the patient in isolation at this time. 3. We may need CT-guided biopsy of the spiculated lung lesion. The spiculated lung nodule was 1.2 cm. 4. Will obtain an HIV screen. 5. Will continue IV Zosyn, IV vancomycin and IV azithromycin. 6. Will get a nutrition consult. Will start Ensure t.i.d. 7. Will get physical therapy consultation. 8. Will provide Pepcid for GERD and reflux symptoms. Will treat nausea. 9. Will obtain an anemia panel. 10. Will start the patient on multivitamin with minerals. 11. Will obtain a prealbumin level. 12. The patient has a history of hyperlipidemia. Will obtain a lipid panel. 13. She has moderate anemia. Will obtain an anemia panel. 14. Will obtain a vitamin B12 level. 15. Will use SCD for prophylaxis and Pepcid. 16. Disposition. Monitor closely. Await family call back. Follow up labs. Job#: [id number] SYDNI
[2017-10-31 08:33] LABS: FERRITIN 409.78 ng/mL (4.63-204.00)
--- NOTE | 2017-10-31 08:35 | Consultation ---
DATE OF CONSULTATION: October 30, 2017 PULMONARY MEDICINE CONSULT REFERRING PHYSICIAN: Dr. Nic Devries REASON FOR REFERRAL: Pneumonia. HISTORY: Ms. Hoyt is a pleasant 81-year-old female who presented to [facility] on October 30, 2017. Patient was not eating. Onset about 2 weeks ago. There is reported weight loss, fatigue, and weakness. Patient per one note resides in a home, although it is noted that at some point recently she was at a nursing facility. Patient with trip to the emergency room due to this issue. Patient came by [facility]. Chest x-ray with a moderate right-sided pneumonitis. Thereafter, a CT chest was done showing bilateral ground-glass/seminodular consolidative opacities in evolution. Patient with no fever here in the hospital, but due to the size of the pneumonia, it was elected to admit her for further care. White count was 9.7 and she had a sodium of 129. Albumin was 2.7. PAST MEDICAL HISTORY: Hypertension, diabetes, hyperlipidemia, osteoporosis, glaucoma, right hip surgery, cataract surgery, GERD. MEDICATIONS: Outpatient medication list reviewed. Includes alendronate, atorvastatin, eyedrops, clonidine, mirtazapine 30, pantoprazole. ALLERGIES: NO KNOWN DRUG ALLERGIES. SOCIAL HISTORY: Patient denies smoking, denies alcohol, and denies drugs. Reportedly lives in a home. Limited history as patient gives short answers and then falls to sleep. FAMILY HISTORY: Noncontributory. REVIEW OF SYSTEMS: Cannot get as she does not reliably discuss. She is lethargic. OBJECTIVE: VITAL SIGNS: Afebrile, vital signs noted per electronic record. GENERAL: In no acute distress, but looks pale and thin and does not maintain wakefulness. HEENT: Normocephalic, atraumatic. NECK: Supple. Throat midline. LUNGS: Bilateral air entry, rare rhonchi, mostly does not take deep breath. CARDIOVASCULAR: S1, S2. No murmurs, rubs, or gallops. ABDOMEN: Soft, nontender. EXTREMITIES: No clubbing, no cyanosis, no edema. INTEGUMENT: No rash, no purpura. LABS: 10 white count, 38 hematocrit, 533,000 platelets. 129 sodium, 4.2 potassium, 20 bicarbonate, 17 BUN, creatinine 0.7. LFTs mildly high 64 AST, 74 ALT. Albumin is 2.7, globulin is 4.7. IMPRESSION AND PLAN: 1. Moderate to large-size pneumonitis. 2. Probably nodular lung forms, rule out other process. 3. Failure to thrive. 4. Weight loss reported. 5. History of gastroesophageal reflux disease. 6. Per emergency room note, hypertension, diabetes, chronic obstructive pulmonary disease. 7. Anxiety. 8. Hyperlipidemia. 9. Osteoarthritis. At this time wish to continue intravenous antibiotics. Will treat for usual organisms. However, patient is losing weight and there is some risk for opportunistic infections, but of note patient with chest x-ray on August 31, 2017 just 2 months ago where the lungs were clear, therefore it seems less likely unless if this is rapid progressive mycobacterial infection or other. Nutrition highly encouraged. Patient furthermore is being treated for urinary tract infection and patient needs to get better rapidly and then we need to see how the patient does with therapy. Will follow along closely. Deep venous thrombosis prophylaxis seems reasonable. Thank you very much, Dr. Nic Devries for this consult. Do not hesitate to contact me if I can help in any way. No early bronchoscopy, but will consider if the patient has lag in progress. Job#: [id number]
[2017-10-31] MEDS ORDERED: AZITHROMYCIN 500MG/NS 250 ML 250 ML IV SCH (09:00)
[2017-10-31] MEDS: MULTIVITAMINS/MINERALS TAB PO SCH (10:06)
[2017-10-31] MEDS: FAMOTIDINE 20 MG/2 ML VIAL IV SCH ×2 (10:06→17:23)
[2017-10-31] MEDS: PANTOPRAZOLE SOD 40 MG TABEC PO SCH (10:06)
[2017-10-31] MEDS: ATORVASTATIN 20 MG TAB PO SCH (10:06)
[2017-10-31] MEDS: HEPARIN SOD (PORCINE) 5,000 UNIT/ML VIAL SC SCH ×2 (10:06→20:55)
[2017-10-31] MEDS: CLONIDINE HCL 0.1 MG TAB PO SCH ×2 (10:06→17:23)
[2017-10-31] MEDS: SODIUM CHLORIDE 0.9% 1000ML 1,000 ML IV SCH ×2 (10:30→23:00)
[2017-10-31] MEDS: AZITHROMYCIN 500MG/NS 250 ML 250 ML IV SCH (17:23)
[2017-10-31] MEDS ORDERED: TRAVOPROST(OPTH) 2.5 ML BTL OP SCH (21:00)
[2017-11-01] VITALS (7 sets, daily range): BP systolic 118–155; BP diastolic 55–77
--- NOTE | 2017-11-01 02:28 | Progress Note ---
DATE: October 31, 2017 PULMONARY MEDICINE PROGRESS NOTE SUBJECTIVE: Mrs. Hoyt was seen and examined at bedside. She is more awake today. She has slow latency to remember, but she seems to be grossly oriented with exception that she gets the year slightly off, but she knows who the president is. Patient was on room air FiO2 when I saw her. She was not really eating yet. Patient seemed to have decreased appetite. I reviewed CT of chest with managing physician. REVIEW OF SYSTEMS: No bleeding, no rash. OBJECTIVE VITAL SIGNS: Afebrile. Vital signs noted per electronic record. GENERAL: No acute distress, alert and calm. HEENT: Normocephalic, atraumatic. NECK: Supple. Throat midline. LUNGS: Bilateral air entry, mostly clear. Rare rhonchi in the throat. CARDIOVASCULAR: S1, S2. No murmurs, rubs or gallops. ABDOMEN: Soft, nontender. EXTREMITIES: No clubbing, no cyanosis, there is no edema. INTEGUMENT: No rash, no purpura. LABS: 0.7 creatinine, 4.0 potassium, 7 white count, 39 hematocrit. IMPRESSIONS AND PLAN 1. Pneumonia. 2. Lung mass, spiculated. 3. Failure to thrive. 4. Encephalopathy, multifactorial. 5. Possible urinary tract infection. 6. Protein-calorie malnutrition. 7. Hyponatremia. PLAN: Continue follow up intermittent electrolyte. Try to get sputum for cultures. Tentatively for biopsy of the lung via interventional radiology. Patient, at this time, will continue have encouragement to try to eat and to maintain good nutritional status. PT will be ordered. Additional fluid supplements were ordered. Job#: [id number] CQ
[2017-11-01] MEDS: PIPER-TAZ 3.375 GM 50 ML IV SCH ×2 (03:58→12:15)
[2017-11-01 06:45] LABS: ANION GAP 12.6 mmol/L (8-16); BLOOD UREA NITROGEN 12 mg/dL (7-26); BUN/CREATININE RATIO 19 (6-25); CALCIUM 8.3 mg/dL (8.4-10.2); CARBON DIOXIDE 18 mmol/L (22-29); CHLORIDE 110 mmol/L (98-107); CREATININE, SERUM 0.64 mg/dL (0.57-1.11); EST GLOMERULAR FILTRATION RATE > 60 ML/MIN (60-); GLUCOSE 91 mg/dL (74-118); POTASSIUM 3.6 mmol/L (3.5-5.1); SODIUM 137 mmol/L (136-145)
[2017-11-01] MEDS: CLONIDINE HCL 0.1 MG TAB PO SCH ×2 (08:10→17:00)
[2017-11-01] MEDS: PANTOPRAZOLE SOD 40 MG TABEC PO SCH (08:10)
[2017-11-01] MEDS: ATORVASTATIN 20 MG TAB PO SCH (08:10)
[2017-11-01] MEDS: MULTIVITAMINS/MINERALS TAB PO SCH (08:10)
[2017-11-01] MEDS: FAMOTIDINE 20 MG/2 ML VIAL IV SCH ×2 (08:10→17:00)
[2017-11-01] MEDS: HEPARIN SOD (PORCINE) 5,000 UNIT/ML VIAL SC SCH (08:42)
[2017-11-01] MEDS ORDERED: ACETAMINOPHEN 325 MG TAB PO PRN (09:45)
[2017-11-01] MEDS: SODIUM CHLORIDE 0.9% 1000ML 1,000 ML IV SCH (12:20)
--- NOTE | 2017-11-01 12:26 | Progress Note ---
DATE: November 01, 2017 PULMONARY MEDICINE PROGRESS NOTE SUBJECTIVE: Mrs. Lubna Hoyt was seen and examined at bedside. She continues to have less confusion than before. However, there is a little bit of redirection that is required for her memory; but for the most part, she is conversational and without any distress. Room air FiO2 is 96% oxygen saturation. Three bowel movements yesterday. Patient continues to have decreased p.o. intake. REVIEW OF SYSTEMS: No headache. No rash. OBJECTIVE VITAL SIGNS: Afebrile. Vital signs noted per electronic record. GENERAL: No acute distress, alert and calm. HEENT: Normocephalic, atraumatic. NECK: Supple. Throat midline. LUNGS: Bilateral air entry, a few rhonchi. CARDIOVASCULAR: S1, S2. No murmurs, rubs or gallops. ABDOMEN: Soft, nontender. EXTREMITIES: No clubbing, no cyanosis. There is no edema. INTEGUMENT: No rash, no purpura. LABS: Potassium 2.6, 12 BUN, 0.6 creatinine, 7 white count, 29 hematocrit, 112 platelets. IMPRESSION AND PLAN 1. Acute pneumonia. 2. Possible dysphagia. 3. Nodular lung forms, multifocal. Rule out nonpulmonary pneumonia process. 4. Failure to thrive, weight loss. 5. History of gastroesophageal reflux disease. Continue current treatment at this time. Continue treating for acute pneumonia. Still we do not have sputum, and this would be the only indication for bronchoscopy as the patient did have some healthcare exposures. Will repeat a chest x-ray tomorrow and see if there is any change. The patient is recommended for further care and close followup given the recurrence of these infections in such a short timeframe. First, the patient needs to improve her nutritional status to improve her immune system. Job#: [id number]
[2017-11-01] MEDS: AZITHROMYCIN 500MG/NS 250 ML 250 ML IV SCH (15:48)
== END 2017-11-01 21:09 | DRG 193 ==
LOC: ER 14:20 → ERHOLD 18:53 → MED/SURG2 20:27
PROVIDERS: ADMIT Internal Medicine; ATTEND Internal Medicine
DX: J18.9 Pneumonia, unspecified organism (principal); E43 Unspecified severe protein-calorie malnutrition; N39.0 Urinary tract infection, site not specified; E87.1 Hypo-osmolality and hyponatremia; Z68.1 Body mass index [BMI] 19.9 or less, adult; R62.7 Adult failure to thrive
CPT/HCPCS: 36415; 51700; 71045; 71250; 80048; 80053; 80061; 81001; 82607; 82728; 83540; 84134; 84466; 85025; 85610; 85730; 87040; 87086; 87186; 87390; 93005; 99284; G0433; G0435; J0456; J1644; J2543; J3370; J7030